=== PATIENT | male | born 1985 | race American Indian/Alaskan Native ===

== ENCOUNTER 2016-12-16 10:13 | Emergency (ER) | payer BC ==
[2016-12-16 11:24] LABS: Bilirubin,Urine NEG (Negative); Blood,Urine SM (Negative); Ketones,Urine NEG (Negative); Leukocyte Esterase,Urine NEG (Negative); Mucus,Urine FEW /HPF; Nitrite,Urine NEG (Negative); Protein,Urine <15 mg/dL mg/dL (Negative); Urobilinogen,Urine < 2.0 mg/dL (<2.0)
[2016-12-16] MEDS ORDERED: TORADOL IM ONE (11:30)
--- NOTE | 2016-12-16 12:16 | Ultrasound Report ---
Testicular ultrasound: Left testicular pain for greater than 6 hours. The right testicle measures 2.5 x 2.9 x 3.7 cm. The left testicle measures 2.4 x 3.4 x 3.8 cm. Both testicles are homogeneous with normal Doppler flow imaging. Both epididymides are normal. No hydrocele. Impression: Normal exam.
--- NOTE | 2016-12-16 15:04 | Emergency Department Report ---
ED Male HPI - General Chief complaint: Urogenital-Male Stated complaint: TESTICLE PAIN Time Seen by Provider: 12/16/16 11:25 Source: patient Mode of arrival: Ambulatory Limitations: No Limitations - History of Present Illness Initial comments: 31-year-old male with no significant Past medical history presents to the hospital complaining of pain to left testicle since last night. Sudden onset of 8/10 pain at 9 PM. Patient symptoms started when rising from a sitting to standing position while at the movies. Pain is constant, sharp, fluctuates in intensity. Currently 3/10 intensity. Worse palpation or movement. Improved with remaining still. Patient denies any recent trauma, dysuria, hematuria, or vomiting. Mild nausea reported when pain is severe in pain radiates down to the thigh and lower abdomen. No previous history of kidney stones. Patient sexually active with one partner and one-month and uses condoms. - Related Data Previous Rx's Medication Instructions Recorded Last Taken Type Ibuprofen [Motrin] 800 mg PO Q8HR PRN #30 tablet 12/16/16 Unknown Rx traMADol [Ultram 50 MG tab] 50 mg PO Q6HR PRN #20 tablet 12/16/16 Unknown Rx Allergies Allergy/AdvReac Type Severity Reaction Status Date / Time No Known Allergies Allergy Unverified 12/16/16 10:28 ED Review of Systems ROS: Stated complaint: TESTICLE PAIN Other details as noted in HPI Comment: All other systems reviewed and negative Other: Constitutional: No fevers chills Eyes: No eye pain visual changes ENT: No ear pain or throat pain Neck: Denies pain Respiratory: Denies cough wheezing shortness of breath Cardiovascular: Denies chest pain, palpitations, syncope GI: Denies avomiting, diarrhea : Denies dysurira Musculoskeletal: Denies back pain Skin: Denies rash, lesions, erythema Neurologic: Denies headache, numbness, weakness Psychiatric: Denies suicidal ideation, hallucinations ED Past Medical Hx - Past Medical History Previous Medical History?: No - Surgical History Additional Surgical History: LEFT SHOULDER - Social History Smoking Status: Former Smoker Substance Use Type: None - Medications Home Medications: Home Medications Medication Instructions Recorded Confirmed Last Taken Type Ibuprofen [Motrin] 800 mg PO Q8HR PRN #30 tablet 12/16/16 Unknown Rx traMADol [Ultram 50 MG tab] 50 mg PO Q6HR PRN #20 tablet 12/16/16 Unknown Rx ED Physical Exam - General Limitations: No Limitations - Other Other exam information: General: No limitations, patient is alert in no acute distress Head exam: Atraumatic, normocephalic Eyes exam: Normal appearance, pupils equal reactive to light, extraocular movements intact ENT: Moist mucous membrane, normal oropharynx Neck exam: Normal inspection, full range of motion, no meningismus nontender Respiratory exam: Clear to auscultation bilateral, no wheezes, rales, crackles Cardiovascular: Normal rate and rhythm, normal heart sounds Abdomen: Soft, nondistended, and nontender, with normal bowel sounds, no rebound, or guarding : Uncircumcised, normal lie, no testicular swelling. Tenderness to the base of left testicle. No penile discharge or lesions Extremity: Full range of motion normal inspection no deformity Back: Normal Inspection, full range of motion, no tenderness Neurologic: Alert, oriented x3, cranial nerves intact, no motor or sensory deficit Psychiatric: normal affect, normal mood Skin: Warm, dry, intact ED Course Vital Signs 12/16/16 12/16/16 12/16/16 10:25 11:41 14:48 Temperature 98.6 F 98.0 F Pulse Rate 92 H 77 Respiratory 17 20 18 Rate Blood Pressure 142/82 Blood Pressure 106/69 [Left] O2 Sat by Pulse 100 100 Oximetry - Reevaluation(s) Reevaluation #1: 12/16/16 16:53 Patient received Toradol and has remained pain-free during ED stay - Consultations Consultation #1: 12/16/16 14:15 Case d/w Dr Milian, rec ct to r/o stone. Outp follow up ED Medical Decision Making - Radiology Data Radiology results: report reviewed Ultrasound testicular: Normal exam CT abdomen and pelvis noncontrast: Bilateral small nonobstructing renal stones. 2 stones in the right and 1 stone on the left. No ureteral stones or hydronephrosis. - Medical Decision Making Patient has a normal testicular ultrasound and UA and a exam. Pain could be referred pain secondary to a recently passed stone since patient has bilateral renal stones. Will be discharged to follow-up urology. - Differential Diagnosis orchitis, std, renal colic, epiditymitis Critical Care Time: No Critical care attestation.: If time is entered above; I have spent that time in minutes in the direct care of this critically ill patient, excluding procedure time. ED Disposition Clinical Impression: Left testicular pain, Renal stones Disposition: DISCHARGED TO HOME OR SELFCARE Is pt being admited?: No Does the pt Need Aspirin: No Condition: Stable Instructions: Kidney Stones (ED), Testicle Pain (ED) Additional Instructions: Take the medication as prescribed. Return if symptoms worsen. Follow-up with the urologist provided for further evaluation Prescriptions: Ibuprofen [Motrin] 800 mg PO Q8HR PRN #30 tablet PRN Reason: Pain traMADol [Ultram 50 MG tab] 50 mg PO Q6HR PRN #20 tablet PRN Reason: Pain Referrals: JUVENCIO TANNER MD [Primary Care Provider] - 3-5 Days ANGIE MILIAN MD [Staff Physician] - 3-5 Days Time of Disposition: 16:57
--- NOTE | 2016-12-16 16:49 | Cat Scan Report ---
CT of the abdomen and pelvis without contrast. History: Left flank pain. Findings: The liver, spleen, and pancreas are normal. The kidneys are normal in size and configuration with no evidence of mass or hydronephrosis. A 3 mm nonobstructing stone is seen in the midpole of the right kidney. A 2 mm stone is seen in the midpole of the left kidney, nonobstructive. A 2 mm stone is seen in the lower pole of the right kidney. There are no pelvic masses or abnormal fluid collections. No mesenteric inflammation is seen. The appendix is normal. Impression: Bilateral small nonobstructing renal stones, 2 on the right and one on the left.
[2016-12-16 17:15] VITALS: BP 127/74
== END 2016-12-16 17:12 | disposition home or self-care (01) ==
LOC: ED 10:13
DX: N50.812 Left testicular pain (principal); N20.0 Calculus of kidney; Z87.891 Personal history of nicotine dependence
CPT/HCPCS: 74176; 81001; 93975; 96372; 99283; J1885